=== PATIENT | male | born 1980 | race Caucasian/White ===

== ENCOUNTER 2025-05-11 17:05 | Emergency (ER) | payer BC ==
[~2025-05-11] VITALS: Ht 177.8 cm; Wt 93.2 kg
[2025-05-11 17:24] LABS: BASOPHILS # (AUTO) 0.1 X10'3 (0-0.2); BASOPHILS % (AUTO) 1.1 % (0-1); EOSINOPHILS # (AUTO) 0.5 X10'3 (0-0.9); EOSINOPHILS % (AUTO) 8.4 % (0-6); HEMATOCRIT 47.2 % (42.0-52.0); HEMOGLOBIN 16.4 g/dl (14.0-17.9); LYMPHOCYTES % (AUTO) 31.1 % (21-51); MEAN CORPUSCULAR HEMOGLOBIN 29.7 PG (27.0-31.0); MEAN CORPUSCULAR HGB CONC 34.8 g/dL (33.0-36.5); MEAN CORPUSCULAR VOLUME 85.3 FL (78-98); MEAN PLATELET VOLUME 8.2 FL (7.4-10.4); MONOCYTES # (AUTO) 0.7 X10'3 (0-0.9); MONOCYTES % (AUTO) 10.8 % (2-12); NEUTROPHILS # (AUTO) 3.1 X10'3 (1.8-7.7); NEUTROPHILS % (AUTO) 48.6 % (42-75); PLATELET COUNT 204 X10'3 (140-440); RED BLOOD COUNT 5.53 X10'6 (4.70-6.10); WHITE BLOOD COUNT 6.4 X10'3 (4.5-11.0)
--- NOTE | 2025-05-11 17:32 | Physician Documentation ---
History of Present Illness ~ Chief Complaint: Chest Pain Stated Complaint: CP SINCE LAST NIGHT Time Seen by MD: 17:25 HPI A 45-year-old male presents to the ED with a complaint of one day of mid sternal chest pain which started early this morning and woke him up. States that the pains sharp and occasionally dull and radiates to his right flank. States he does not have a history of kidney stones. 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 Does not take any prescribed medications. He states that occasionally takes Aleve Day of Onset: May 11, 2025 Medication Reconciliation Allergies: Coded Allergies: No Known Allergies (Unverified , 05/11/25) Review of Systems All Other Systems at this time: Reviewed and Negative ROS As stated above in the HPI, otherwise all systems are reviewed and negative. Physical Exam Vital Signs: Temperature: 97.6, Source: Temporal, Heart Rate: 72, Respiratory Rate: 16, BP: 152/90, Pulse Oximetry: 99, Weight: 93.180 Oxygen Flow Rate: 0 Physical Exam General: Alert, no apparent distress. Respiratory: Lungs clear, no respiratory distress. Cardiovascular: Regular rate and rhythm, no murmurs. Gastrointestinal: Soft, nontender, nondistended. Bowels sounds present. Negative CVA tenderness Neurologic: Oriented x4. Psychiatric: Normal mood and affect. Skin: Normal color, warm and dry. No edema, no ecchymosis. Progress Results/Orders Results/Orders Orders - EUSEBIO PETERSON MD Chest,Single View (05/11/25 17:25) Monitor (05/11/25 17:17) Saline Lock (05/11/25 17:17) Oxygen (05/11/25 17:17) Electrocardiogram (05/11/25 17:17) Completed Orders - EUSEBIO PETERSON MD Chest,Single View (05/11/25 17:25) Cbc/Diff (05/11/25 17:17) BMP (05/11/25 17:17) PBNP (05/11/25 17:17) Electrocardiogram (05/11/25 17:17) Hs Troponin I W Calculations (05/11/25 17:17) Hs Troponin I W Calculations (05/11/25 19:17) Laboratory Tests Test 05/11/25 17:15 05/11/25 17:27 05/11/25 17:47 White Blood Count 6.4 Red Blood Count 5.53 Hemoglobin 16.4 Hematocrit 47.2 Mean Corpuscular Volume 85.3 Mean Corpuscular Hemoglobin 29.7 Mean Corpuscular Hemoglobin Concent 34.8 Red Cell Distribution Width 13.0 Platelet Count 204 Mean Platelet Volume 8.2 Neutrophils (%) (Auto) 48.6 Lymphocytes (%) (Auto) 31.1 Monocytes (%) (Auto) 10.8 Eosinophils (%) (Auto) 8.4 H Basophils (%) (Auto) 1.1 H Neutrophils # (Auto) 3.1 Lymphocytes # (Auto) 2.0 Monocytes # (Auto) 0.7 Eosinophils # (Auto) 0.5 Basophils # (Auto) 0.1 CBC Comment Sodium Level 138 Potassium Level 3.7 Chloride Level 104 Carbon Dioxide Level 27.2 Anion Gap 7 L Blood Urea Nitrogen 15 Creatinine 1.33 H Estimated GFR/1.73 m2 58 BUN/Creatinine Ratio 11.3 Glucose Level 110 H Calcium Level 8.6 Troponin I High Sensitivity 5 5 Pro-B-Type Natriuretic Peptide < 30 Albumin 3.7 Chemistry Comments Urine Specimen Description Cln catch midstream Urine Color Yellow Urine Clarity Clear Urine pH 6.0 Urine Specific [place] >=1.030 Urine Protein Negative Urine Glucose (UA) Negative Urine Ketones Negative Urine Occult Blood Negative Urine Nitrite Negative Urine Bilirubin Negative Urine Urobilinogen 0.2 Urine Leukocyte Esterase Negative Urine Culture Indicated Not ind Volume Urine Centrifuged 10 ml Urine Comment Departure Disposition: HOME / SELF CARE / HOMELESS Impression: Primary Impression: Chest wall pain Additional Impression: GERD (gastroesophageal reflux disease) Condition: Stable Discharge Instructions: Gastroesophageal Reflux Scan Referrals: NO PRIMARY CARE PROVIDER (PCP) Signature Scribe Signature: c Attestation: Scribed for Kaden Nunez [employer] by Kaden Hook NP . 05/11/25 23:23 KADEN NUNEZ NP May 11, 2025 17:32 EUSEBIO PETERSON MD May 16, 2025 15:20
--- NOTE | 2025-05-11 17:43 | RADIOLOGY REPORT ---
CHEST RADIOGRAPH Indication: CP Technique: Single frontal view of the chest was obtained Comparison: None FINDINGS: Lines and Tubes: None Lungs: No focal consolidation. Pleura: No effusion. No pneumothorax. Cardiomediastinal contours: Unremarkable Bones: No acute osseous abnormality. IMPRESSION: No acute cardiopulmonary disease.
[2025-05-11 17:45] LABS: ALBUMIN 3.7 G/DL (3.4-5.0); ANION GAP 7 (8-16); BLOOD UREA NITROGEN 15 MG/DL (7-18); BUN/CREATININE RATIO 11.3 (10.0-20.0); CALCIUM 8.6 MG/DL (8.5-10.1); CHLORIDE 104 MMOL/L (99-107); CREATININE 1.33 MG/DL (0.60-1.10); GLUCOSE 110 MG/DL (70-104); POTASSIUM 3.7 MMOL/L (3.5-5.1); PRO BRAIN NATRIURETIC PEPTIDE < 30 PG/ML (0-125); SODIUM 138 MMOL/L (135-145); TOTAL CARBON DIOXIDE 27.2 MMOL/L (24-32); eCRCL 72 ML/MIN; eGFR 58 ML/MIN
[2025-05-11 18:01] LABS: BILIRUBIN,URINE NEGATIVE (Neg); CLARITY,URINE CLEAR (Clear); COLOR,URINE YELLOW (Yellow); GLUCOSE, URINE NEGATIVE (Neg); KETONES,URINE NEGATIVE (Neg); LEUKOCYTE ESTERASE ,URINE NEGATIVE (Neg); NITRITES, URINE NEGATIVE (Neg); OCCULT BLOOD,URINE NEGATIVE (Neg); PROTEIN,URINE NEGATIVE (Neg); UROBILINOGEN,URINE 0.2 E.U/dL (0.2-1.0)
[2025-05-11 18:10] LABS: UA COLLECTION TYPE CLN CATCH MIDSTREAM
[2025-05-11] MEDS: ketorolac trometh 30MG/ML vial 30 MG/ML VIAL IM ONE (18:29)
[2025-05-11] MEDS: pantoprazole 40mg Tablet.DR PO PRN (18:33)
[2025-05-11] MEDS: normal saline 1000ml 1,000 ML IV ONE (18:59)
[2025-05-11 19:13] VITALS: BP 130/82; PULSE 60; RESP 16; TEMP 97.6; O2SAT 96
[2025-05-12] MEDS ORDERED: pantoprazole 40mg Tablet.DR PO SCH (07:30)
--- NOTE | 2025-05-12 17:59 | ELECTROCARDIOGRAPH REPORT ---
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 Ruben Soriano Measurements Intervals [place] Rate: 74 P: 50 WI: 147 QRS: 70 QRSD: 84 T: 48 QT: 354 QTc: 393 Interpretive Statements Sinus rhythm Atrial premature complex Probable left atrial enlargement Electronically Signed On 05-12-2025 18:47:[address] Ruben Soriano Please click the below link to view image of tracing.
== END 2025-05-11 19:19 | disposition home or self-care (01) ==
LOC: ER 17:06
DX: R07.2 Precordial pain (principal); K21.9 Gastro-esophageal reflux disease without esophagitis; R06.02 Shortness of breath
CPT/HCPCS: 36415; 71045; 80048; 81003; 83880; 84484; 85025; 93005; 96372; 99285; J1885; J7030